=== PATIENT | female | born 1980 | race Caucasian/White ===

== ENCOUNTER 2017-04-10 23:45 | Emergency (ER) | payer SELFPAY ==
[~2017-04-10] VITALS: Ht 167.6 cm; Wt 100.0 kg
[2017-04-10] MEDS ORDERED: IBUP-2070 PO (23:52)
[2017-04-10] MEDS ORDERED: METF500T4 PO (23:52)
[2017-04-10 23:57] LABS: GLUCOSE,POINT OF CARE 248 MG/DL (70-110)
[2017-04-11 02:11] VITALS: BP 111/64
== END 2017-04-11 03:38 | disposition left against medical advice (07) ==
LOC: EMS 23:46
DX: J02.9 Acute pharyngitis, unspecified (principal); Z53.21 Procedure and treatment not carried out due to patient leaving prior to being seen by health care provider
CPT/HCPCS: 82962

== ENCOUNTER 2017-07-13 19:08 | Emergency (ER) | payer SELFPAY ==
[~2017-07-13 19:08] MED LIST: IBUP-2070 PO; METF500T6 PO
== END 2017-07-13 19:19 | disposition left against medical advice (07) ==
LOC: EMS 19:09
DX: R10.9 Unspecified abdominal pain (principal); Z53.21 Procedure and treatment not carried out due to patient leaving prior to being seen by health care provider

== ENCOUNTER 2025-01-19 13:29 | Inpatient (IN) | payer MEDICAID ==
[~2025-01-19] VITALS: Ht 165.1 cm; Wt 72.1 kg
[~2025-01-19 13:29] MED LIST changes: +IBUP-1492 PO; -IBUP-2070 PO; +METF-1211 PO; -METF500T6 PO
[2025-01-19 14:12] LABS: PLATELET COUNT (AUTO) 290 K/uL (150-450); RED BLOOD CELL COUNT(AUTO) 5.28 MIL/uL (4.00-5.20); RED CELL DISTRIBUTION WIDTH 16.0 % (11.5-14.5); WHITE BLOOD COUNT (AUTO) 5.0 K/uL (4.5-11.0)
[2025-01-19 14:17] LABS: CALCIUM, TOTAL 8.4 mg/dL (8.8-10.5); CREATININE 0.71 mg/dL (0.60-1.30); GLOMERULAR FILTR. RATE CALC > 60 mL/min (>60); SODIUM SERUM 130 mmol/L (136-145); UREA NITROGEN, BLOOD 16 mg/dL (7-18)
[2025-01-19 14:19] LABS: GLUCOSE,RANDOM 551 mg/dL (70-110)
[2025-01-19 14:20] LABS: ASPARTATE AMINOTRANSFERASE 24.0 U/L (15-37); TOTAL PROTEIN, SERUM 7.1 g/dL (6.4-8.2)
[2025-01-19 14:29] LABS: TROPONIN I-HIGH SENSITIVITY 17 ng/L (<51)
[2025-01-19 14:46] LABS: RBC MORPHOLOGY COMMENT ABNORMAL RBC MORPH
[2025-01-19] MEDS ORDERED: ACETAMINOPHEN 325 MG TABLET PO PRN (15:30)
[2025-01-19] MEDS ORDERED: MAGNESIUM HYDROXIDE SUSPENSION 30 ML UDCUP PO PRN (15:30)
[2025-01-19] MEDS ORDERED: DEXTROSE 50%-WATER 25 GM/50 ML SYRINGE IVP PRN (15:30)
[2025-01-19] MEDS ORDERED: ZOLPIDEM TARTRATE 5 MG TABLET PO PRN (15:30)
[2025-01-19] MEDS: SODIUM CHLORIDE 0.9% 1,000 ML IV ONE (15:42)
[2025-01-19] MEDS: INSULIN REGULAR, HUMAN 100 UNITS/ML IVP ONE (15:43)
[2025-01-19] MEDS: ASPIRIN 81 MG CHEWABLE TABLET PO SCH (15:56)
[2025-01-19] MEDS: LOSARTAN POTASSIUM 25 MG TABLET PO SCH (15:57)
[2025-01-19 17:10] LABS: GLUCOMETER DEV NAME(LOC) ER.7; GLUCOSE,POINT OF CARE 326 MG/DL (70-110)
[2025-01-19 18:05] VITALS: BP 171/94; PULSE 84; RESP 16; TEMP 98.4; O2SAT 99
[2025-01-19 18:10] LABS: APPEARANCE,URINE CLEAR (CLEAR); GLUCOSE, URINE (UA) >=1000 mg/dL (NEGATIVE); LEUKOCYTE ESTERASE ,URINE NEGATIVE (NEGATIVE); NITRATE,URINE NEGATIVE (NEGATIVE); OCCULT BLOOD,URINE NEGATIVE (NEGATIVE); SPECIFIC GRAVITIY, URINE 1.037 (1.003-1.030)
[2025-01-19] MEDS: LOSARTAN POTASSIUM 25 MG TABLET PO ONE (18:48)
[2025-01-19 19:55] LABS: TROPONIN I-HIGH SENSITIVITY 17 ng/L (<51)
[2025-01-19 20:00] VITALS: BP 154/97; PULSE 83; RESP 18; TEMP 97.7; O2SAT 100
[2025-01-19] MEDS: INSULIN LISPRO 100 UNITS/ML SQ PRN (21:38)
[2025-01-20] VITALS: BP 155/94; PULSE 87; RESP 18; TEMP 99; O2SAT 97
[2025-01-20 04:00] VITALS: BP 150/93; PULSE 83; RESP 18; TEMP 98.1; O2SAT 99
[2025-01-20 06:49] LABS: PLATELET COUNT (AUTO) 308 K/uL (150-450); RED BLOOD CELL COUNT(AUTO) 5.13 MIL/uL (4.00-5.20); RED CELL DISTRIBUTION WIDTH 15.9 % (11.5-14.5); WHITE BLOOD COUNT (AUTO) 6.0 K/uL (4.5-11.0)
[2025-01-20 06:57] LABS: CALCIUM, TOTAL 8.3 mg/dL (8.8-10.5); CREATININE 0.52 mg/dL (0.60-1.30); GLOMERULAR FILTR. RATE CALC > 60 mL/min (>60); GLUCOSE,RANDOM 299 mg/dL (70-110); SODIUM SERUM 136 mmol/L (136-145); UREA NITROGEN, BLOOD 11 mg/dL (7-18)
[2025-01-20 07:10] VITALS: BP 136/88; PULSE 86; RESP 18; TEMP 98.6; O2SAT 98
[2025-01-20] MEDS: FAMOTIDINE 20 MG TABLET PO SCH (08:18)
[2025-01-20] MEDS: LOSARTAN POTASSIUM 50 MG TABLET PO SCH (08:19)
[2025-01-20 08:26] LABS: RBC MORPHOLOGY COMMENT ABNORMAL RBC MORPH
[2025-01-20 08:46] LABS: GLUCOMETER DEV NAME(LOC) 5S.2E; GLUCOSE,POINT OF CARE 355 MG/DL (70-110)
[2025-01-20 08:46] LABS: GLUCOMETER DEV NAME(LOC) 5S.2E; GLUCOSE,POINT OF CARE 80 MG/DL (70-110)
[2025-01-20 11:29] VITALS: BP 149/93; PULSE 82; RESP 18; TEMP 98.2; O2SAT 99
[2025-01-20 12:21] LABS: GLUCOMETER DEV NAME(LOC) 5S.2E; GLUCOSE,POINT OF CARE 348 MG/DL (70-110)
[2025-01-20 15:59] VITALS: BP 156/84; PULSE 85; RESP 18; TEMP 98.2; O2SAT 98
[2025-01-20] MEDS: INSULIN LISPRO 100 UNITS/ML SQ ONE (17:34)
[2025-01-20 17:56] LABS: GLUCOMETER DEV NAME(LOC) 5S.2E; GLUCOSE,POINT OF CARE 443 MG/DL (70-110)
[2025-01-20 20:04] VITALS: BP 150/95; PULSE 81; RESP 18; TEMP 98.4; O2SAT 98
[2025-01-20 21:35] LABS: GLUCOMETER DEV NAME(LOC) 5S.2E; GLUCOSE,POINT OF CARE 305 MG/DL (70-110)
[2025-01-21 00:40] VITALS: BP 134/71; PULSE 80; RESP 18; TEMP 98.2; O2SAT 96
[2025-01-21 05:00] VITALS: BP 154/98; PULSE 89; RESP 18; TEMP 98.8; O2SAT 97
[2025-01-21 06:26] LABS: GLUCOMETER DEV NAME(LOC) 5S.1E; GLUCOSE,POINT OF CARE 302 MG/DL (70-110)
[2025-01-21 07:29] LABS: PLATELET COUNT (AUTO) 320 K/uL (150-450); RED BLOOD CELL COUNT(AUTO) 5.51 MIL/uL (4.00-5.20); RED CELL DISTRIBUTION WIDTH 15.5 % (11.5-14.5); WHITE BLOOD COUNT (AUTO) 5.8 K/uL (4.5-11.0)
[2025-01-21 07:43] LABS: CALCIUM, TOTAL 8.8 mg/dL (8.8-10.5); CREATININE 0.52 mg/dL (0.60-1.30); GLOMERULAR FILTR. RATE CALC > 60 mL/min (>60); GLUCOSE,RANDOM 326 mg/dL (70-110); SODIUM SERUM 137 mmol/L (136-145); UREA NITROGEN, BLOOD 11 mg/dL (7-18)
[2025-01-21 08:28] VITALS: BP 144/99; PULSE 96; RESP 16; TEMP 98.6; O2SAT 98
[2025-01-21] MEDS ORDERED: METF-1211 PO (08:39)
[2025-01-21] MEDS ORDERED: GLIP5TAB16 PO (08:40)
[2025-01-21 09:28] LABS: RBC MORPHOLOGY COMMENT ABNORMAL RBC MORPH
[2025-01-21 11:26] VITALS: BP 159/90; PULSE 90; RESP 20; TEMP 98.1; O2SAT 99
[2025-01-21 11:50] VITALS: BP 148/89
[2025-01-21 11:50] LABS: GLUCOMETER DEV NAME(LOC) 5S.2E; GLUCOSE,POINT OF CARE 290 MG/DL (70-110)
== END 2025-01-21 12:20 | disposition home or self-care (01) | DRG 203 ==
LOC: EMS 13:29 → EDH 15:18 → 5N 18:14
PROVIDERS: ADMIT Internal Medicine; ATTEND Internal Medicine
DX: R07.89 Other chest pain (principal); E87.1 Hypo-osmolality and hyponatremia; E11.65 Type 2 diabetes mellitus with hyperglycemia; D50.9 Iron deficiency anemia, unspecified; I10 Essential (primary) hypertension; Z82.49 Family history of ischemic heart disease and other diseases of the circulatory system; Z83.3 Family history of diabetes mellitus; Z86.32 Personal history of gestational diabetes; Z91.199 Patient's noncompliance with other medical treatment and regimen due to unspecified reason
CPT/HCPCS: 71045; 80048; 80076; 81001; 82962; 83036; 84484; 84703; 85025; 93005; 93306; 96361; 96374; 99285; J1815; J7030; 36415-L1; 36415-TC